=== PATIENT | male | born 1945 ===

== ENCOUNTER 2020-09-27 12:32 | Outpatient (CLI) | payer MEDICARE, OTHER, SELFPAY ==
--- NOTE | 2020-09-27 12:58 | ECHO_ITS ---
Patient Info Name: Aileen Wilder Age: 75 years : 1945 Gender: Male Ht: 72 in Wt: 200 lbs BSA: 2.16 m2 HR: 82 bpm BP: 150 / 84 mmHg Technical Quality: Good Exam Date: 09/27/2020 1:25 PM Exam Location: [facility] Patient Status: Outpatient Admit Date: 09/27/2020 Staff Ordering Physician: Marcello Lino MD Third Hand: Janette Mcneal RDCS Attending Provider: Marcello Lino MD Referring Physician: Holland CAMARILLO; Exam Type: CA echo doppler color flow Study Info Indications - NONRHEUMATIC MITRAL VALVE INSUFFIEIENCY Complete two-dimensional, color flow and Doppler transthoracic echocardiogram is performed. Summary 1. Complete two-dimensional, color flow and Doppler transthoracic echocardiogram is performed. 2. Left ventricular chamber dimension is normal. 3. Left ventricular systolic function is normal, estimated at 60-65%. 4. There is mildly increased left ventricular wall thickness. 5. The left ventricular diastolic function is grade I diastolic dysfunction. 6. E/e' 9 is minimally elevated. 7. Left atrial chamber dimension is mildly enlarged. 8. There is mild aortic valve sclerosis. 9. The mitral valve has moderately calcified annulus. 10. There is mild mitral valve regurgitation. 11. There is mild tricuspid valve regurgitation. 12. No pulmonary hypertension, estimated pulmonary arterial systolic pressure is 33 mmHg. Left Ventricle E/e' 9 is minimally elevated. Left ventricular chamber dimension is normal. Left ventricular systolic function is normal, estimated at 60-65%. There is mildly increased left ventricular wall thickness. The left ventricular diastolic function is grade I diastolic dysfunction. Right Ventricle Right ventricular chamber dimension is normal. Right ventricular systolic function is normal. Left Atria Left atrial chamber dimension is mildly enlarged. Right Atria Right atrial chamber dimension is normal. Aortic Valve The aortic valve is trileaflet. There is mild aortic valve sclerosis. There is no aortic valve stenosis. There is no aortic valve regurgitation. Pulmonic Valve There is no pulmonic regurgitation. Mitral Valve The mitral valve has moderately calcified annulus. There is no mitral valve stenosis. There is mild mitral valve regurgitation. Tricuspid Valve There is mild tricuspid valve regurgitation. No pulmonary hypertension, estimated pulmonary arterial systolic pressure is 33 mmHg. Pericardium/Pleural There is no pericardial effusion. Inferior Vena Cava Normal inferior vena cava with >50% collapse upon inspiration consistent with normal right atrial pressure, 5 mmHg. Aorta The aortic root size at the sinus of Valsalva is normal. Left Ventricular Outflow Tract Name Value Normal LVOT 2D LVOT Diameter 2.1 cm LVOT Doppler LVOT Peak Gradient 4 mmHg LVOT Mean Gradient 3 mmHg LVOT VTI 22 cm LVOT VTI/AV VTI Ratio 0.7 LVOT Stroke Volume 81 ml LVOT C
== END 2020-09-27 12:33 | disposition home or self-care (01) ==
LOC: ANHCARD 12:34
PROVIDERS: PCP Family Medicine; Visit Provider Family Medicine
DX: I34.0 Nonrheumatic mitral (valve) insufficiency (principal); I35.1 Nonrheumatic aortic (valve) insufficiency; I36.1 Nonrheumatic tricuspid (valve) insufficiency
CPT/HCPCS: 93306

== ENCOUNTER 2022-09-25 07:27 | Outpatient (CLI) | payer MEDICARE, OTHER, SELFPAY ==
--- NOTE | 2022-09-25 07:43 | EST_ITS ---
Patient Info Name: Aileen Wilder Age: 77 years : 1945 Gender: Male Ht: 72 in Wt: 204 lbs BSA: 2.18 m2 HR: 80 bpm BP: 152 / 85 mmHg Heart Rhythm: Sinus Rhythm Exam Date: 09/25/2022 8:49 AM Exam Location: [facility] Stress Patient Status: Outpatient Admit Date: 09/25/2022 Staff Ordering Physician: Marcello Lino MD Attending Provider: Marcello Lino MD Exercise Technologist: Ele Adrian CT Exercise Physician: Alf Newsome DO Exam Type: CA stress test treadmill Study Info Indications I10 - Essential (primary) hypertension I34.9 - Nonrheumatic mitral valve disorder, unspecified A treadmill exercise stress test was performed. Summary 1. 1. Negative Lan exercise stress test for ischemic ST changes by ECG criteria. 2. 2. Reduced functional capacity, achieving 4.7 METs of workload. 3. 3. Baseline hypertension. 4. 4. Appropriate HR response to exercise. 5. 5. Appropriate HR recovery at 1 minute post exercise. 6. 6. No imaging with stress testing. 7. 7. Patient informed of the above results. Protocol: Lan Stress ECG Details Stage: REST Duration (min): 1 min : 9 sec Speed (mph): 0.0 Grade (%): 0 HR (bpm): 85 SBP (mmHg): 152 DBP (mmHg): 85 METS: --- Stage: REST Duration (min): 4 min : 1 sec Speed (mph): 0.0 Grade (%): 0 HR (bpm): 91 SBP (mmHg): 152 DBP (mmHg): 85 METS: --- Stage: STAGE 1 Duration (min): 1 min : 0 sec Speed (mph): 1.7 Grade (%): 10 HR (bpm): 117 SBP (mmHg): 152 DBP (mmHg): 85 METS: --- Stage: STAGE 1 Duration (min): 2 min : 0 sec Speed (mph): 1.7 Grade (%): 10 HR (bpm): 136 SBP (mmHg): 172 DBP (mmHg): 66 METS: --- Stage: STAGE 1 Duration (min): 3 min : 0 sec Speed (mph): 1.7 Grade (%): 10 HR (bpm): 146 SBP (mmHg): 200 DBP (mmHg): 67 METS: --- Stage: STAGE 2 Duration (min): 0 min : 1 sec Speed (mph): 2.5 Grade (%): 12 HR (bpm): 146 SBP (mmHg): 200 DBP (mmHg): 67 METS: --- Stage: RECOVERY Duration (min): 0 min : 58 sec Speed (mph): 0.0 Grade (%): 0 HR (bpm): 125 SBP (mmHg): 200 DBP (mmHg): 67 METS: --- Stage: RECOVERY Duration (min): 1 min : 58 sec Speed (mph): 0.0 Grade (%): 0 HR (bpm): 109 SBP (mmHg): 200 DBP (mmHg): 67 METS: --- Stage: RECOVERY Duration (min): 2 min : 58 sec Speed (mph): 0.0 Grade (%): 0 HR (bpm): 109 SBP (mmHg): 192 DBP (mmHg): 83 METS: --- Stage: RECOVERY Duration (min): 3 min : 11 sec Speed (mph): 0.0 Grade (%): 0 HR (bpm): 107 SBP (mmHg): 192 DBP (mmHg): 83 METS: --- Rest HR: 91 bpm Peak HR: 147 bpm Rest Sys BP: 152 mmHg Peak Sys BP: 200 mmHg Max Pred HR: 143 bpm % Max Pred HR: 103 % Target HR: 122 bpm Max RPP: 29,400 bpm*mmHg Lundberg Score: -4 Termination Reason: Reached target heart rate or workload Cardiac Symptoms: Shortness of breath Max ST Seg De
--- NOTE | 2022-09-25 07:43 | ECHO_ITS ---
Patient Info Name: Aileen Wilder Age: 77 years : 1945 Gender: Male Ht: 72 in Wt: 205 lbs BSA: 2.19 m2 HR: 80 bpm BP: 162 / 86 mmHg Technical Quality: Good Exam Date: 09/25/2022 8:00 AM Exam Location: [facility] Patient Status: Outpatient Admit Date: 09/25/2022 Staff Ordering Physician: Marcello Lino MD Fish Bin Tender: Karla Elder RDCS Attending Provider: Marcello Lino MD Referring Physician: Holland CAMARILLO; Exam Type: CA echo doppler color flow Study Info Indications I34.0 - Nonrheumatic mitral (valve) insufficiency Complete two-dimensional, color flow and Doppler transthoracic echocardiogram is performed. Summary 1. Complete two-dimensional, color flow and Doppler transthoracic echocardiogram is performed. 2. Left ventricular chamber dimension is normal. 3. Left ventricular systolic function is normal, estimated at 55-60%. 4. There is mild concentric increased left ventricular wall thickness. 5. The left ventricular diastolic function is grade I diastolic dysfunction. 6. E/e' 9 is minimally elevated. 7. Global longitudinal strain is abnormal at -14.7%. 8. Left atrial chamber dimension is mildly enlarged. 9. Right atrial chamber dimension is mildly enlarged. 10. There is mild aortic valve sclerosis. 11. The mitral valve has moderately calcified annulus. 12. There is mild mitral valve regurgitation. 13. There is trace tricuspid valve regurgitation. 14. No pulmonary hypertension, estimated pulmonary arterial systolic pressure is 34 mmHg. 15. Small atheroma in anterior and posterior aortic root. Left Ventricle E/e' 9 is minimally elevated. Global longitudinal strain is abnormal at -14.7%. Left ventricular chamber dimension is normal. Left ventricular systolic function is normal, estimated at 55-60%. There is mild concentric increased left ventricular wall thickness. The left ventricular diastolic function is grade I diastolic dysfunction. Right Ventricle Right ventricular systolic function is normal and with normal TAPSE 2.2 cm. Right ventricular chamber dimension is normal. Left Atria Left atrial chamber dimension is mildly enlarged. Right Atria Right atrial chamber dimension is mildly enlarged. Aortic Valve The aortic valve is trileaflet. There is mild aortic valve sclerosis. There is no aortic valve stenosis. There is no aortic valve regurgitation. Pulmonic Valve There is no pulmonic regurgitation. Mitral Valve The mitral valve has moderately calcified annulus. There is no mitral valve stenosis. There is mild mitral valve regurgitation. Tricuspid Valve There is trace tricuspid valve regurgitation. No pulmonary hypertension, estimated pulmonary arterial systolic pressure is 34 mmHg. Pericardium/Pleural There is no pericardial effusion. Inferior Vena Cava Normal inferior vena cava with >50% collapse upon inspiration consistent with normal right atrial pressure, 5 mmHg. Aorta Small atheroma in anterior and posterior aortic root. The aortic root size at the sinus of Valsalva is normal. Left Ventricular Outflow Tract Name Value Normal LVOT 2D LVOT Diameter 2.0 cm LVOT Doppler
== END 2022-09-25 07:28 | disposition home or self-care (01) ==
LOC: ANHCARD 07:30
PROVIDERS: PCP Family Medicine; Visit Provider Family Medicine
DX: I51.89 Other ill-defined heart diseases (principal); I34.0 Nonrheumatic mitral (valve) insufficiency; I10 Essential (primary) hypertension; E78.2 Mixed hyperlipidemia
CPT/HCPCS: 93017; 93306